=== PATIENT | male | born 1960 ===

== ENCOUNTER 2016-11-30 08:45 | Day surgery (SDC) | payer OTHER ==
[2016-11-25 12:43] VITALS: BMI 26.6
[2016-11-30] MEDS ORDERED: Midazolam 2 MG/2 ML VIAL ONE (11:59)
[2016-11-30] MEDS ORDERED: Propofol 10 mg/ml Inj (20 ML) ONE (11:59)
[2016-11-30] MEDS ORDERED: Lactated Ringer's 1,000 ML IV ONE (12:06)
[2016-11-30] MEDS ORDERED: ceFAZolin IV 1 gm in Dextrose 1 GM/50 ML BAG IVPB ONE (12:13)
[2016-11-30] MEDS ORDERED: Bupivacaine HCl 0.25% PF (10 ml) Inj ONE (12:14)
[2016-11-30] MEDS ORDERED: Lidocaine 1% Inj (20ml) ONE (12:14)
[2016-11-30] MEDS ORDERED: Bacitracin 500 Units/gm Oint Foilpak UD ONE (12:15)
[2016-11-30 13:12] VITALS: O2SAT 100
[2016-11-30 14:24] VITALS: BP 112/70; PULSE 63; RESP 18; TEMP 97
--- NOTE | 2016-11-30 23:35 | OP ---
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 PROCEDURE PERFORMED: 1. Wide and deep radical resection of 4 cm tumor of the face and scalp (08284). 2. Repair of temporal artery (83052). 3. Adjacent tissue transfer closure of greater than 30 sq cm (40737). INDICATIONS: This is a 56-year-old male with preauricular tumor who now presents for a radical resection. DESCRIPTION OF PROCEDURE: He was taken to the operating room, placed in the supine position and the right scalp preauricular area were prepped and draped. A generous elliptical incision was made surrounding the tumor. It was excised into the and completely removed. Bleeding was controlled using a Bovie. A branch of the temporal artery was repaired with Prolene. The wound was irrigated with copious amounts of saline solution. Generous tissue flaps were raised using a Bovie and then equated 30 sq cm adjacent tissue closure was performed using multiple layers of heavy Monocryl and subcuticular Monocryl and skin was closed. The patient tolerated the procedure well and returned to the recovery room in stable condition. Bon Watkins MD
== END 2016-11-30 15:56 | disposition home or self-care (01) ==
LOC: C.SDS 08:45
PROVIDERS: ATTEND Surgery
DX: D49.2 Neoplasm of unspecified behavior of bone, soft tissue, and skin (principal); M79.89 Other specified soft tissue disorders; G47.33 Obstructive sleep apnea (adult) (pediatric); I10 Essential (primary) hypertension
CPT/HCPCS: 14301; 21016; 35201; 88307; J0690; J2250; J2270; J2704; J3010; J7120